=== PATIENT | male | born 1965 | race Caucasian/White ===

== ENCOUNTER 2021-12-27 12:19 | Emergency (ER) | payer SELFPAY ==
[~2021-12-27] VITALS: Ht 175.3 cm; Wt 79.4 kg
[2021-12-27 12:36] VITALS: BP 154/97
[2021-12-27] MEDS ORDERED: carBAMazepine 200 MG TAB PO ONE (13:05)
[2021-12-27] MEDS ORDERED: NAPR-54 PO (13:15)
[2021-12-27] MEDS ORDERED: [UNRECOGNIZED DRUG - CODE] PO (13:15)
[2021-12-27] MEDS ORDERED: NAPROXEN 500 MG TAB PO ONE (13:20)
[2021-12-27 13:52] VITALS: BP 141/82
--- NOTE | 2021-12-27 13:52 | NUR ---
Patient discharged with v/s stable. Written and verbal after care instructions given and explained with teach back. Patient alert, oriented and verbalized understanding of instructions. Ambulatory with steady gait. All questions addressed prior to discharge. ID band removed. Patient advised to follow up with PMD. Rx of NAPROSYN/CARBAMAZEPINE given. Patient educated on indication of medication including possible reaction and side effects. Opportunity to ask questions provided and answered.
[2021-12-27] MEDS ORDERED: NAPROXEN 500 MG TAB PO SCH (21:00)
== END 2021-12-27 13:52 | disposition home or self-care (01) ==
LOC: MED 12:19
DX: R51.9 Headache, unspecified (principal); R03.0 Elevated blood-pressure reading, without diagnosis of hypertension; Z79.899 Other long term (current) drug therapy
CPT/HCPCS: 99283